=== PATIENT | male | born 1990 | race Caucasian/White ===

== ENCOUNTER 2022-01-22 15:26 | Emergency (ER) | payer OTHER, SELFPAY ==
[2022-01-22 15:45] VITALS: BP 152/91; PULSE 97; RESP 18; TEMP 37.6; O2SAT 99
--- NOTE | 2022-01-22 16:14 | ED.GENADULT ---
HPI - General Adult General Chief complaint: Wound/Laceration Stated complaint: arm bleeding Source: patient Mode of arrival: ambulatory Limitations: no limitations History of Present Illness HPI narrative: Patient presents for evaluation of bleeding to the left forearm. He indicates he was driving earlier today when he looked over and saw some blood on the armrest. He also noted small amount of bleeding from left forearm. He does not remember injuring himself. He attempted to get the area to stop bleeding with application of pressure but states this is the second Band-Aid that he has applied. He has no associated pain. He is not on blood thinners. He is diabetic but states his blood sugars are usually controlled on metformin. Date of last tetanus unknown. He is right-hand dominant. No loss of range of motion. No additional complaints or concerns Related Data Home Medications Medication Instructions Recorded Confirmed duloxetine 20 mg capsule,delayed 20 mg PO DAILY 01/22/22 01/22/22 release lisinopril 20 mg tablet 20 mg PO DAILY 01/22/22 01/22/22 metformin 500 mg tablet,extended 500 mg PO DIRECTED 01/22/22 01/22/22 release 24 hr pantoprazole 40 mg tablet,delayed 40 mg PO DAILY 01/22/22 01/22/22 release Allergies Allergy/AdvReac Type Severity Reaction Status Date / Time No Known Allergies Allergy Verified 01/22/22 15:50 Review of Systems Review of Systems: CONSTITUTIONAL: Denies fever, chills, or sweats. EYES: Denies visual changes, redness, or discharge. ENT: Denies rhinorrhea, congestion, sore throat, or otalgia. CARDIOVASCULAR: Denies chest pain, palpitations, or edema. RESPIRATORY: Denies cough or dyspnea. GASTROINTESTINAL: Denies abdominal pain, nausea, vomiting, or diarrhea. GENITOURINARY: Denies dysuria or hematuria. SKIN: Reports small amount of bleeding from left forearm. MUSCULOSKELETAL: Denies back pain, joint pain, or myalgia. NEUROLOGIC: Denies headache, numbness, dizziness, or weakness. PSYCHIATRIC: Denies anxiety or depression. [facility] Past Medical History Medical History (Updated 01/22/22 @ 16:22 by Dean Guevara, SHAKILA, ) Depression Diabetes GERD (gastroesophageal reflux disease) Hypertension Surgical History Surgical History No pertinent past surgical history Family History Family History (Updated 01/22/22 @ 16:20 by SHAKILA Sue, ) Father No pertinent family history Social History Social History Smoking status: Never smoker Substance use: never Additional living arrangements comments: Lives with girlfriend Gender identity (if verbalized by the patient): Male Sexual Orientation (if Verbalized by the Patient): Straight or Heterosexual Spiritual care concerns: No Exam Narrative: GENERAL: Well-appearing, well-nourished, and in no acute distress. HEAD: Normocephalic, atraumatic. EYES: PERRLA and EOMI. ENT: Nares clear, no rhinorrhea or epistaxis. Mucous membranes moist. Oropharynx without tonsillar hypertrophy exudate or other lesions. Bilateral TMs pearly fisher nonbulging NECK: Supple. No adenopathy or masses. No carotid bruits or JVD CHEST: Clear to auscultation. No respiratory distress. No wheezes rales or rhonchi HEART: Regular rate and rhythm. No murmur heard. Normal peripheral pulses. ABDOMEN: Soft, nontender, nondistended, normal active bowel sounds. EXTREMITIES: Normal range of motion. No edema. SKIN: There is an approximately 1 cm superficial abrasion to the proximal left forearm. There is scant amount of sanguinous drainage noted. Warm, dry, no rash. NEURO: No focal deficits. Alert and oriented x3. PSYCH: Normal mood and affect. Course Course Emergency Course: This is a 32-year-old male who presented for evaluation of an abrasion to the left forearm. 1 silver nitrate stick was used to achieve hemostas
[2022-01-22] MEDS: TETANUS,DIPHTHERIA,AC PERTUSSIS ADULT (0.5 ML) BOOSTRIX IM (16:25)
== END 2022-01-22 16:53 | disposition home or self-care (01) ==
PROVIDERS: Emergency Provider Nurse Practitioner
DX: S40.812A Abrasion of left upper arm, initial encounter (principal); X58.XXXA Exposure to other specified factors, initial encounter; Z23 Encounter for immunization; E11.9 Type 2 diabetes mellitus without complications; Z79.84 Long term (current) use of oral hypoglycemic drugs; K21.9 Gastro-esophageal reflux disease without esophagitis; I10 Essential (primary) hypertension
CPT/HCPCS: 90471; 90715; 99212; G0463